=== PATIENT | female | born 1980 | race Caucasian/White ===

== ENCOUNTER 2019-06-03 06:31 | Emergency (ER) | payer BC, SELFPAY ==
[~2019-06-03] VITALS: Ht 154.9 cm; Wt 77.1 kg
[~2019-06-03 06:31] MED LIST: BIOTIN2500 MCG PO; BIOTIN5 MG PO; CIPRO500 MG PO; IBUPROFEN800 MG PO; KETOROLAC TROME10 MG PO; MOBIC7.5 MG PO; OMEPRAZOLE20 M1 PO; OXYCODON-ACETA1 EAC2 PO; PROZAC20 MG PO; SUDAFED30 MG PO; TRAMADOL HCL50 MG PO; TYLENOL WITH C1 EACH PO; ULTRAM50 MG PO; VITAMIN D5000 UNIT PO; ZEGERID 40 MG1 EACH PO; ZITHROMAX250 MG PO; ZYRTEC10 MG PO
[2019-06-03] MEDS ORDERED: VENTOLIN HFA18 GM INH (06:52)
[2019-06-03] MEDS ORDERED: ONDANSETRON ODT4 MG SL (08:42)
== END 2019-06-03 08:53 | disposition home or self-care (01) ==
LOC: ED 06:31
DX: R19.7 Diarrhea, unspecified (principal); R11.2 Nausea with vomiting, unspecified; J45.909 Unspecified asthma, uncomplicated; F17.200 Nicotine dependence, unspecified, uncomplicated; Z88.2 Allergy status to sulfonamides; Z88.5 Allergy status to narcotic agent
CPT/HCPCS: 80053; 81001; 83735; 85025; 96374; 99284-25; J2405; J7030

== ENCOUNTER 2019-09-24 21:18 | Emergency (ER) | payer BC ==
[~2019-09-24] VITALS: Ht 154.9 cm; Wt 77.1 kg
[~2019-09-24 21:18] MED LIST changes: +ONDANSETRON ODT4 MG SL; +VENTOLIN HFA18 GM INH
== END 2019-09-24 22:38 | disposition home or self-care (01) ==
LOC: ED 21:18
DX: S90.31XA Contusion of right foot, initial encounter (principal); J45.909 Unspecified asthma, uncomplicated; F17.200 Nicotine dependence, unspecified, uncomplicated; Z88.2 Allergy status to sulfonamides; Z88.5 Allergy status to narcotic agent; Z88.8 Allergy status to other drugs, medicaments and biological substances; Z79.899 Other long term (current) drug therapy; W22.8XXA Striking against or struck by other objects, initial encounter
CPT/HCPCS: 73630; 99283-25

== ENCOUNTER 2021-06-08 01:15 | Emergency (ER) | payer BC ==
[~2021-06-08] VITALS: Ht 154.9 cm; Wt 89.8 kg
--- OUTSIDE RECORDS SUMMARY | 2021-06-08 01:18 | XMS ---
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 Kelly has no Care Guidelines for this patient. [facility] VISIT COUNT (12 MO.) 1 [facility] TOTAL 1 NOTE: Visits indicate total known visits. ED/C VISIT TRACKING (12 MO.) 06/08/2021 01:16 [facility] [place] TYPE: Emergency COMPLAINT: - SORE THROAT INPATIENT VISIT TRACKING (12 MO.) No inpatient visits to display in this time frame [email or web address]
== END 2021-06-08 02:40 | disposition home or self-care (01) ==
LOC: ED 01:15
DX: J02.9 Acute pharyngitis, unspecified (principal); J45.909 Unspecified asthma, uncomplicated; F17.200 Nicotine dependence, unspecified, uncomplicated; Z88.2 Allergy status to sulfonamides; Z88.5 Allergy status to narcotic agent; Z88.8 Allergy status to other drugs, medicaments and biological substances; Z79.899 Other long term (current) drug therapy; Z20.822 Contact with and (suspected) exposure to COVID-19
CPT/HCPCS: 87880; 99283; C9803; U0003

== ENCOUNTER 2022-05-27 12:35 | Emergency (ER) | payer OTHER, BC ==
[~2022-05-27] VITALS: Ht 154.9 cm; Wt 89.8 kg
[2022-05-27] MEDS ORDERED: TRAMADOL HCL50 MG PO (20:21)
== END 2022-05-27 20:33 | disposition home or self-care (01) ==
LOC: ED 12:35
DX: S16.1XXA Strain of muscle, fascia and tendon at neck level, initial encounter (principal); T14.8XXA Other injury of unspecified body region, initial encounter; M54.50 Low back pain, unspecified; F17.200 Nicotine dependence, unspecified, uncomplicated; Z90.710 Acquired absence of both cervix and uterus; Z88.2 Allergy status to sulfonamides; Z88.5 Allergy status to narcotic agent; Z88.8 Allergy status to other drugs, medicaments and biological substances; Z79.899 Other long term (current) drug therapy; V47.5XXA Car driver injured in collision with fixed or stationary object in traffic accident, initial encounter
CPT/HCPCS: 70450; 72100; 72125; 73030; 73552; 73590; 99284-25; A9270

== ENCOUNTER 2022-10-16 18:45 | Emergency (ER) | payer BC ==
[~2022-10-16] VITALS: Ht 154.9 cm; Wt 89.4 kg
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
[2022-10-16 19:50] VITALS: BP 149/97
== END 2022-10-16 19:50 | disposition home or self-care (01) ==
LOC: ED 18:45
DX: S61.211A Laceration without foreign body of left index finger without damage to nail, initial encounter (principal); W26.8XXA Contact with other sharp object(s), not elsewhere classified, initial encounter; Z53.21 Procedure and treatment not carried out due to patient leaving prior to being seen by health care provider

== ENCOUNTER 2023-03-19 11:50 | Emergency (ER) | payer BC ==
[~2023-03-19] VITALS: Ht 154.9 cm; Wt 86.2 kg
[2023-03-19 12:58] LABS: INFLUENZA B NAA NEGATIVE (NEGATIVE); RESPIRATORY SYNCYTIAL VIR NAA NEGATIVE (NEGATIVE)
[2023-03-19 16:04] VITALS: BP 136/91
[2023-03-19] MEDS ORDERED: PROBIOTIC250 MG (23:34)
[2023-03-20] MEDS ORDERED: K-TAB ER20 MEQ PO (04:16)
[2023-03-20] MEDS ORDERED: CARAFATE1 GM PO (04:16)
[2023-03-22] MEDS ORDERED: HYDROCODON-ACE1 EA10 PO (10:10)
== END 2023-03-19 15:21 | disposition other institution, planned readmission (95) ==
LOC: ED 11:50
PROVIDERS: Emergency Medicine
DX: R42 Dizziness and giddiness (principal); Z53.29 Procedure and treatment not carried out because of patient's decision for other reasons; R11.0 Nausea; R51.9 Headache, unspecified; R10.10 Upper abdominal pain, unspecified; R50.9 Fever, unspecified; Z11.52 Encounter for screening for COVID-19
CPT/HCPCS: 87502; C9803; U0002

== ENCOUNTER 2023-03-19 22:46 | Emergency (ER) | payer BC ==
[~2023-03-19] VITALS: Ht 154.9 cm; Wt 87.0 kg
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
[2023-03-19 23:29] LABS: BILIRUBIN, URINE POSITIVE (negative); BLOOD/HGB, URINE MODERATE (Negative); KETONE, URINE TRACE (Negative); LEUK ESTERASE, URINE NEGATIVE (negative); NITRITE, URINE NEGATIVE (negative); PH, URINE 5.5 (5-7)
[2023-03-19] MEDS ORDERED: PROBIOTIC250 MG (23:34)
[2023-03-19 23:41] LABS: BACTERIA, URINE 1+ /hpf (negative); EPITHELIAL CELLS, URINE SQUAMOUS 1+ /lpf (0-1+); REFLEX CULTURE, URINE Yes (No)
[2023-03-20 00:10] LABS: BASOPHILS 0.7 % (0-2); EOSINOPHILS 0.4 % (0-6); HEMATOCRIT 33.8 % (35.0-50.0); HEMOGLOBIN 11.4 g/dL (12.0-18.0); LYMPHOCYTES 24.3 % (24-44); MCH 29.4 (27-36); MCHC 33.6 g/dl (30-36); MCV 87.7 fl (81-99); MONOCYTES 6.9 % (0-12); NEUTROPHILS 67.7 % (39-80); PLATELET COUNT 127 K/uL (140-440); RBC 3.86 M/ul (4.3-5.7); RDW 13.4 (10.5-15.0)
[2023-03-20 00:25] LABS: ALBUMIN/GLOBULIN RATIO 0.68 (1.1-2.4); ANION GAP 14.9 (7-21); BILIRUBIN, TOTAL 0.5 ng/dL (0.2-1.0); BUN/CREATININE RATIO 9.57 (6.0-28.6); CALCIUM 9.6 mg/dL (8.5-10.1); CREATININE, SERUM 0.94 mg/dL (0.55-1.02); MAGNESIUM 1.3 mg/dL (1.8-2.4); POTASSIUM 2.9 mmol/L (3.5-5.1); PROTEIN, TOTAL 7.4 g/dL (6.4-8.2)
[2023-03-20] MEDS ORDERED: CARAFATE1 GM PO (04:16)
[2023-03-20] MEDS ORDERED: K-TAB ER20 MEQ PO (04:16)
[2023-03-20 04:42] VITALS: BP 142/99
[2023-03-21 12:05] LABS: HEPATITIS A ANTIBODY, IGM Negative (Negative); HEPATITIS B CORE ANTIBODY, IGM Negative (Negative); HEPATITIS B SURFACE ANTIGEN Negative (Negative); HEPATITIS C AB CIA INTERP Negative (Negative); HEPATITIS C ANTIBODY CIA INDEX 0.06 IV (())
[2023-03-22] MEDS ORDERED: HYDROCODON-ACE1 EA10 PO (10:10)
== END 2023-03-20 04:43 | disposition home or self-care (01) ==
LOC: ED 22:46
PROVIDERS: Internal Medicine
DX: B34.9 Viral infection, unspecified (principal); K76.0 Fatty (change of) liver, not elsewhere classified; K21.9 Gastro-esophageal reflux disease without esophagitis; R16.1 Splenomegaly, not elsewhere classified; E87.6 Hypokalemia; J45.909 Unspecified asthma, uncomplicated; E86.0 Dehydration; F17.200 Nicotine dependence, unspecified, uncomplicated; Z88.2 Allergy status to sulfonamides; Z88.5 Allergy status to narcotic agent; Z88.8 Allergy status to other drugs, medicaments and biological substances; Z79.899 Other long term (current) drug therapy
CPT/HCPCS: 36415; 71045; 74177; 80053; 80074; 81001; 83690; 83735; 84703; 85025; 86308; 87088; 96361; 96375; 99284-25; A9270; J2405; J7121

== ENCOUNTER 2024-07-01 07:47 | Emergency (ER) | payer BC ==
[~2024-07-01] VITALS: Ht 154.9 cm; Wt 91.5 kg
[~2024-07-01 07:47] MED LIST changes: +CARAFATE1 GM PO; +HYDROCODON-ACE1 EA10 PO; +K-TAB ER20 MEQ PO; +PROBIOTIC250 MG
[2024-07-01] MEDS ORDERED: VALACYCLOVIR1000 MG PO (07:55)
[2024-07-01] MEDS ORDERED: AMOX TR-K CLV1 EAC1 PO (08:27)
[2024-07-01] MEDS ORDERED: ZITHROMAX250 MG PO (08:27)
[2024-07-01] MEDS ORDERED: PREDNISONE20 MG PO (08:27)
[2024-07-01] MEDS ORDERED: QVAR REDIHALE10.6 GM INH (08:27)
[2024-07-01 08:33] VITALS: BP 151/109
== END 2024-07-01 08:33 | disposition home or self-care (01) ==
LOC: ED 07:47
DX: J06.9 Acute upper respiratory infection, unspecified (principal); J45.901 Unspecified asthma with (acute) exacerbation; F17.200 Nicotine dependence, unspecified, uncomplicated; Z88.2 Allergy status to sulfonamides; Z88.5 Allergy status to narcotic agent; Z91.048 Other nonmedicinal substance allergy status; Z79.899 Other long term (current) drug therapy
CPT/HCPCS: 99284